=== PATIENT | female | born 1940 | race African-American/Black ===

== ENCOUNTER 2018-09-11 12:33 | Inpatient (IN) | payer MEDICARE ==
[~2018-09-11] VITALS: Ht 152.8 cm; Wt 41.7 kg
[2018-09-11] MEDS ORDERED: MAGNESIUM/ALUMINUM HYDROXIDE/SIMETHICONE 30ML UDC PO STA (13:51)
[2018-09-11] MEDS ORDERED: FAMOTIDINE 20MG/2ML VIAL IV STA (13:51)
[2018-09-11 14:10] LABS: EOSINOPHILS % 0.9 % (0.0-5.0); HEMATOCRIT. 43.8 % (36.0-48.0); HEMOGLOBIN. 14.7 g/dL (12.0-16.0); LYMPHOCYTES % 20.1 % (20.0-50.0); MEAN CORPUSCULAR HEMOGLOBIN 31.6 pg (28.0-32.0); MEAN CORPUSCULAR VOLUME 94.3 fL (81.0-99.0); MEAN PLATELET VOLUME 8.7 fl (7.4-10.4); MONOCYTES % 11.6 % (2.0-8.0); NEUTROPHILS % 66.4 % (40.0-76.0); PLATELET 217 x1000/uL (130-400); RED BLOOD CELL COUNT 4.64 mill/uL (4.2-5.4)
[2018-09-11 14:17] LABS: CHLORIDE 103 mEq/L (98-107); INR 1.1; PROTHROMBIN TIME 10.8 sec (9.6-11.0)
[2018-09-11 14:30] LABS: CLARITY URINE CLEAR (CLEAR); COLOR URINE YELLOW (YELLOW); KETONES URINE NEGATIVE (NEGATIVE); LEUKOCYTE ESTERASE URINE NEGATIVE (NEGATIVE); NITRITE URINE NEGATIVE (NEGATIVE); OCCULT BLOOD URINE NEGATIVE (NEGATIVE); PROTEIN URINE NEGATIVE (NEGATIVE); SPECIFIC GRAVITY URINE 1.008 (1.005-1.030); UROBILINOGEN URINE 0.2 E.U./dL (0.2-1.0)
[2018-09-11] MEDS ORDERED: MORPHINE SULFATE 2 MG/ML CPJ (NOT FOR IM USE) IV ONE (19:00)
[2018-09-11] MEDS ORDERED: DONE23TA3 PO (21:50)
[2018-09-11] MEDS ORDERED: MECL-109 PO (21:50)
[2018-09-11] MEDS ORDERED: LISI10TA5 PO (21:50)
[2018-09-11] MEDS ORDERED: OMEP20CA5 PO (21:50)
[2018-09-11] MEDS ORDERED: AMLO-375 PO (21:50)
[2018-09-11 22:00] VITALS: BP 146/73
[2018-09-11] MEDS ORDERED: LORAZEPAM 2MG/ML CPJ IV PRN (22:15)
[2018-09-11] MEDS ORDERED: ONDANSETRON HCL 4MG/2ML INJ IV PRN (23:00)
[2018-09-11] MEDS ORDERED: MORPHINE SULFATE 2 MG/ML CPJ (NOT FOR IM USE) IV PRN (23:00)
[2018-09-11] MEDS ORDERED: POTASSIUM CHLORIDE INJ 40 MEQ in DEXT 5% WATER 500 ML IV NR (23:00)
[2018-09-11] MEDS ORDERED: ENOXAPARIN 30MG/0.3ML SYR SUBCUT SCH (23:15)
[2018-09-12] VITALS: BP 135/66
[2018-09-12] MEDS ORDERED: DEXT 5%/0.45% NACL KCL 30MEQ/L 1,000 ML IV SCH
[2018-09-12 04:00] VITALS: BP 122/69
[2018-09-12 06:59] LABS: BASOPHILS % 0.8 % (0.0-2.0); EOSINOPHILS % 0.9 % (0.0-5.0); HEMATOCRIT. 37.1 % (36.0-48.0); HEMOGLOBIN. 12.7 g/dL (12.0-16.0); LYMPHOCYTES % 15.1 % (20.0-50.0); MEAN CORPUSCULAR HEMOGLOBIN 31.7 pg (28.0-32.0); NEUTROPHILS % 70.2 % (40.0-76.0); PLATELET 214 x1000/uL (130-400); RED BLOOD CELL COUNT 3.99 mill/uL (4.2-5.4); RED CELL DISTRIBUTION WIDTH 13.2 % (11.6-14.6)
[2018-09-12 07:17] LABS: CHLORIDE 106 mEq/L (98-107)
[2018-09-12 07:29] LABS: T4 FREE 1.09 ng/dL (0.76-1.46)
[2018-09-12 08:00] VITALS: BP 158/63
[2018-09-12] MEDS ORDERED: LISINOPRIL 10MG TABLET PO SCH (09:00)
[2018-09-12] MEDS ORDERED: FAMOTIDINE 20MG/2ML VIAL IV SCH (09:00)
[2018-09-12 11:41] VITALS: BP 114/58
[2018-09-12 14:46] VITALS: BP 158/63
== END 2018-09-12 15:40 | disposition home or self-care (01) | DRG 251 ==
LOC: ER 12:33 → 6EST 18:38 → EDBEDREQ 18:42 → EDBEDREQTM 18:42 → ENRESERV 20:14 → 6EST 22:31
PROVIDERS: ADMIT Internal Medicine; ATTEND Internal Medicine
DX: R10.13 Epigastric pain (principal); G30.9 Alzheimer's disease, unspecified; F02.80 Dementia in other diseases classified elsewhere, unspecified severity, without behavioral disturbance, psychotic disturbance, mood disturbance, and anxiety; G89.29 Other chronic pain; I10 Essential (primary) hypertension; Z79.899 Other long term (current) drug therapy
CPT/HCPCS: 36415; 76700; 84439; 84443; 96374; 96375; 99285; J1650; J2060; J2270; J3480; J3490; J7060